=== PATIENT | female | born 1955 | race Caucasian/White ===

== ENCOUNTER 2021-10-01 11:23 | Day surgery (SDC) | payer MEDICARE ==
[~2021-10-01] VITALS: Ht 170.2 cm; Wt 78.1 kg
[~2021-10-01 11:23] MED LIST: ALBU90OI INH; Crestor20 MG PO; ESTRADIOL1 MG PO; EZET10 PO; FAMO40 PO; GABA300 PO
[2021-10-01] MEDS ORDERED: NORT10 (11:41)
[2021-10-01] MEDS ORDERED: Cymbalta20 MG (11:41)
[2021-10-01] MEDS ORDERED: ZOLP5 (11:42)
== END 2021-10-01 13:21 | disposition home or self-care (01) ==
LOC: ORSCSDS 11:23
PROVIDERS: Student in an Organized Health Care Education/Training Program
PROC: 0DB58ZX Excision of Esophagus, Via Natural or Artificial Opening Endoscopic, Diagnostic (ICD-10-PCS; principal; 2021-10-01 13:15)
PROC: 0DB68ZX Excision of Stomach, Via Natural or Artificial Opening Endoscopic, Diagnostic (ICD-10-PCS; principal; 2021-10-01 13:15)
DX: R13.10 Dysphagia, unspecified (principal); K29.70 Gastritis, unspecified, without bleeding; K21.9 Gastro-esophageal reflux disease without esophagitis; Z79.899 Other long term (current) drug therapy; Z87.891 Personal history of nicotine dependence
CPT/HCPCS: 88305; 88342; J0330; J0461; J2405; J2704; J7120

== ENCOUNTER → 2022-05-19 | Outpatient (CLI) | payer MEDICARE ==
[~2022-05-19] MED LIST changes: +Cymbalta20 MG; +NORT10; +ZOLP5
== END | disposition home or self-care (01) ==
LOC: LAB SHORT 15:30 → LAB 15:30
DX: R30.0 Dysuria (principal)
CPT/HCPCS: 87086; 88305; 88312

== ENCOUNTER → 2023-02-12 | Outpatient (CLI) | payer MEDICARE, OTHER | END | disposition home or self-care (01) | LOC: PLD 07:32 → LAB SHORT 07:32 | DX: C44.321 Squamous cell carcinoma of skin of nose (principal) | CPT/HCPCS: 88305 ==